=== PATIENT | male | born 1985 ===

== ENCOUNTER 2018-03-15 23:35 | Emergency (ER) | payer OTHER ==
[2018-03-16 00:31] VITALS: BMI 36.6
[2018-03-16 02:16] LABS: BASO % 0.5 % (0.0-2.0); EOS # 0.2 K/uL (0.0-0.7); EOS % 3.1 % (0.0-4.0); HEMOGLOBIN 16.6 g/dL (12.0-18.0); LYMPH # 2.4 K/uL (1.0-4.3); LYMPH % 32.9 % (20.0-40.0); MEAN CELL VOLUME 86.8 fl (80.0-94.0); MEAN CORPUSCULAR HEMOGLOBIN 29.6 pg (27.0-31.0); MEAN CORPUSCULAR HGB CONC 34.1 g/dL (33.0-37.0); MEAN PLATELET VOLUME 9.1 fl (7.2-11.7); MONO # 0.6 K/uL (0.0-0.8); MONO % 7.6 % (0.0-10.0); NEUT # 4.1 K/uL (1.8-7.0); NEUT % 55.9 % (50.0-75.0); RBC 5.59 Mil/uL (4.40-5.90); WHITE BLOOD COUNT 7.3 K/uL (4.8-10.8)
[2018-03-16 02:18] LABS: URINE BILIRUBIN NEGATIVE (NEGATIVE); URINE BLOOD NEGATIVE (NEGATIVE); URINE CLARITY CLEAR (Clear); URINE COLOR STRAW (YELLOW); URINE GLUCOSE (UA) NEG (NEGATIVE); URINE LEUKOCYTE ESTERASE NEG Leu/uL (Negative); URINE PROTEIN NEGATIVE (NEGATIVE); URINE UROBILINOGEN 0.2-1.0 mg/dL (0.2-1.0)
[2018-03-16 02:27] LABS: ALB/GLOB RATIO 1.5 (1.0-2.1); ALBUMIN 4.4 g/dL (3.5-5.0); ALT/SGPT 73 U/L (21-72); AST/SGOT 44 U/L (17-59); BLOOD UREA NITROGEN 16 mg/dl (9-20); CALCIUM 9.8 mg/dL (8.4-10.2); GFR NON-AFRICAN AMERICAN > 60; LIPASE 104 U/L (23-300)
--- NOTE | 2018-03-16 02:51 | ED PDOC ---
HPI: Abdomen Time Seen by Provider: 03/16/18 01:09 Chief Complaint (Nursing): Abdominal Pain Chief Complaint (Provider): Abdominal Pain History Per: Patient History/Exam Limitations: no limitations Onset/Duration Of Symptoms: Days (x3) Pain Scale Rating Of: 7 Location Of Pain/Discomfort: LLQ Quality Of Discomfort: "Pain" Associated Symptoms: Nausea, Diarrhea, Loss Of Appetite. denies: Vomiting Additional History Per: Patient Additional Complaint(s): 32 y/o male with a PMHX of hypertension presents to the ED with LLQ pain, onset 3 days ago associated with nausea and diarrhea. Patient has been experiencing a loss of appetite. Otherwise, patient denies vomiting. PMD: none Past Medical History Reviewed: Historical Data, Nursing Documentation, Vital Signs Vital Signs: Last Vital Signs Temp 98.6 F 03/16/18 00:31 Pulse 73 03/16/18 00:31 Resp 18 03/16/18 00:31 BP 135/74 03/16/18 00:31 Pulse Ox 99 03/16/18 00:31 DELANO Report Viewed: Yes - Medical History PMH: Diverticulitis, HTN - Surgical History Surgical History: No Surg Hx - Family History Family History: States: Unknown Family Hx - Social History Current smoker - smoking cessation education provided: No Ex-Smoker (has not smoked in the last 12 months): No Alcohol: None Drugs: Denies - Home Medications Home Medications: Ambulatory Orders Medication Instructions Recorded Dicyclomine [Bentyl] 20 mg PO Q12 PRN #20 tab 03/16/18 - Allergies Allergies/Adverse Reactions: Allergies Allergy/AdvReac Type Severity Reaction Status Date / Time aspirin Allergy RASH Verified 03/16/18 00:31 Review of Systems ROS Statement: Except As Marked, All Systems Reviewed And Found Negative Gastrointestinal: Positive for: Nausea, Diarrhea (non bloody). Negative for: Vomiting Physical Exam - Reviewed Nursing Documentation Reviewed: Yes Vital Signs Reviewed: Yes - Physical Exam Appears: Positive for: Well, No Acute Distress Head Exam: Positive for: ATRAUMATIC, NORMAL INSPECTION, NORMOCEPHALIC Skin: Positive for: Normal Color, Warm, Dry Eye Exam: Positive for: Normal appearance, EOMI, PERRL ENT: Positive for: Normal ENT Inspection Neck: Positive for: Normal Cardiovascular/Chest: Positive for: Regular Rate, Rhythm. Negative for: Murmur Respiratory: Positive for: Normal Breath Sounds. Negative for: Wheezing Gastrointestinal/Abdominal: Positive for: Tenderness (to the left lower quadrant) Back: Positive for: Normal Inspection Extremity: Positive for: Normal ROM (x4) Neurologic/Psych: Positive for: Alert, Oriented (x3) - Laboratory Results Result Diagrams: 03/16/18 01:55 03/16/18 01:55 Lab Results: Total Bilirubin 0.3 mg/dl (0.2-1.3) 03/16/18 01:55 AST 44 U/L (17-59) 03/16/18 01:55 ALT 73 U/L (21-72) H 03/16/18 01:55 Alkaline Phosphatase 78 U/L (38-126) 03/16/18 01:55 Total Protein 7.4 G/DL (6.3-8.2) 03/16/18 01:55 Albumin 4.4 g/dL (3.5-5.0) 03/16/18 01:55 Globulin 3.0 gm/dL (2.2-3.9) 03/16/18 01:55 Albumin/Globulin Ratio 1.5 (1.0-2.1) 03/16/18 01:55 Lipase 104 U/L (23-300) 03/16/18 01:55 Urine Color Straw (YELLOW) 03/16/18 01:55 Urine Clarity Clear (Clear) 03/16/18 01:55 Urine pH 6.0 (5.0-8.0) 03/16/18 01:55 Ur Specific Elbert 1.009 (1.003-1.030) 03/16/18 01:55 Urine Protein Negative mg/dL (NEGATIVE) 03/16/18 01:55 Urine Glucose (UA) Neg mg/dL (NEGATIVE) 03/16/18 01:55 Urine Ketones Negative mg/dL (NEGATIVE) 03/16/18 01:55 Urine Blood Negative (NEGATIVE) 03/16/18 01:55 Urine Nitrate Negative (NEGATIVE) 03/16/18 01:55 Urine Bilirubin Negative (NEGATIVE) 03/16/18 01:55 Urine Urobilinogen 0.2-1.0 mg/dL (0.2-1.0) 03/16/18 01:55 Ur Leukocyte Esterase Neg Nicholas/uL (Negative) 03/16/18 01:55 Urine RBC (Auto) 1 /hpf (0-3) 03/16/18 01:55 Urine Microscopic WBC < 1 /hpf (0-5) 03/16/18 01:55 - ECG O2 Sat by Pulse Oximetry: 99 (RA) Pulse Ox Interpretation: Normal Medical Decision Making Medical Decision Making: Time: 2:30 Initial Impression: 32 y/o male with abdominal pain. labs and CT ordered. Initial Plan: Time: 1:39 -Abd & Pelvis IV Contrast -CMP Stat -Lipase Stat -ED Urine Dipstick POC -CBC w differential -IV Insertion -Urinalysis - Patient declined pain medication at this time. Time: 1:27 CT ABD/ Pelvis w Contrast CLINICAL HISTORY: Abdominal pain. TECHNIQUE: Multiple axial and coronal CT images were obtained through the abdomen and pelvis after administration of intravenous contrast material. COMMENTS: The liver is of uniform attenuation without mass or defect. There is no intra or extrahepatic biliary ductal dilatation. The spleen is normal. The gallbladder is within normal limits. The pancreas is of normal contour and attenuation characteristics. There is no evidence of adrenal mass. Both kidneys demonstrate prompt and equal nephrograms. The kidneys are normal in size, shape and configuration. There is no evidence of renal or ureteral mass. No renal or ureteral calculi are identified. There is no hydroureter or hydronephrosis. No evidence for appendicitis. There is no bowel wall thickening. No evidence for small or large bowel obstruction. There is no evidence of abdominal ascites or lymphadenopathy. Uncomplicated colonic diverticulosis with mild amount of fecal residue in the large bowel. There is no evidence of intrinsic or extrinsic bladder mass. There is no pelvic ascites or lymphadenopathy. Diffuse thickening of the bladder. Images of the lung bases show no evidence of pleural or parenchymal mass. There are no pleural effusions. The bony structures are free of lytic or blastic lesions. IMPRESSION: Mild thickening of the bladder. Under distention versus mild cystitis. Thank you for your kind referral of this patient. Electronically signed on Mar 16, 2018 3:46:35 AM EST by: Mckinley Medrano M.D., Certified by JAYLENE, MSDc, Neuroradiology Scribe Attestation: Documented by Cora Stout, acting as a scribe for Myronjarek Phillips Heavenprakash. Provider Scribe Attestation: All medical record entries made by the Scribe were at my direction and personally dictated by me. I have reviewed the chart and agree that the record accurately reflects my personal performance of the history, physical exam, medical decision making, and the department course for this patient. I have also personally directed, reviewed, and agree with the discharge instructions and disposition. Disposition - Clinical Impression Clinical Impression: Abdominal pain - Disposition Referrals: [facility] [Outside] Disposition Time: 04:00 Condition: STABLE Prescriptions: Dicyclomine [Bentyl] 20 mg PO Q12 PRN #20 tab PRN Reason: abdominal pain Instructions: Acute Abdomen (Belly Pain), Adult (DC) Forms: [facility] (Angolan) Print Language: [place]
[2018-03-16] MEDS ORDERED: Iohexol 300 100 ML IJ ONE (03:00)
[2018-03-16] MEDS ORDERED: Sodium Chloride 0.9% 50 ML IV ONE (03:00)
[2018-03-16 04:05] VITALS: BP 129/81; PULSE 76; RESP 16; TEMP 98.7
--- NOTE | 2018-03-16 13:15 | CT ---
Date of service: 03/16/2018 PROCEDURE: CT Abdomen and Pelvis with contrast HISTORY: LLQ pain COMPARISON: None. TECHNIQUE: Contrast dose: Radiation dose: Total exam DLP = 911.84 mGy-cm. This CT exam was performed using one or more of the following dose reduction techniques: Automated exposure control, adjustment of the mA and/or kV according to patient size, and/or use of iterative reconstruction technique. FINDINGS: LOWER THORAX: Unremarkable. LIVER: Fatty liver. No gross lesion or ductal dilatation. GALLBLADDER AND BILE DUCTS: Unremarkable. PANCREAS: Unremarkable. No gross lesion or ductal dilatation. SPLEEN: Unremarkable. ADRENALS: Unremarkable. No mass. KIDNEYS AND URETERS: Unremarkable. No hydronephrosis. No solid mass. VASCULATURE: Unremarkable. No aortic aneurysm. No aortic atherosclerotic calcification or mural plaque present. BOWEL: Unremarkable. No obstruction. No gross mural thickening. APPENDIX: Normal appendix. PERITONEUM: Unremarkable. No free fluid. No free air. LYMPH NODES: Unremarkable. No enlarged lymph nodes. BLADDER: Unremarkable. REPRODUCTIVE: Unremarkable. BONES: No acute fracture. OTHER FINDINGS: None. IMPRESSION: Fatty liver.
[2018-03-17 05:13] VITALS: O2SAT 99
== END 2018-03-16 04:05 | disposition home or self-care (01) ==
LOC: H.ER 23:35
DX: R10.32 Left lower quadrant pain (principal)
CPT/HCPCS: 74177; 80053; 81003; 83690; 85025; 99283; Q9967

== ENCOUNTER 2018-05-26 17:09 | Emergency (ER) | payer OTHER ==
[2018-05-26 17:09] VITALS: BMI 36.6
[2018-05-26] MEDS ORDERED: Sodium Chloride 0.9% 1,000 ML IV STA (17:54)
--- NOTE | 2018-05-26 17:57 | ED PDOC ---
HPI: Chest Pain Time Seen by Provider: 05/26/18 17:55 Chief Complaint (Nursing): Chest Pain Chief Complaint (Provider): palpitations History Per: Patient (33 y/o male here with palpitations intermittent x 2 days four minutes in duration associated with chest pressure. Patient states he has been seen by cardiology in [place] for these symptoms and has been on atenolol and no rvasc. Notes that he was adviced to stop atenolol under monitoring was done on 04/27. Says he subsequently restarted medications but is concerned with episodes of palpitations today. Has also had CTA of chest but unsure of results. f/u appt with cardiolgy next week 06/01/2018.) Past Medical History Reviewed: Historical Data, Nursing Documentation, Vital Signs Vital Signs: Last Vital Signs Temp 97.7 F 05/26/18 17:18 Pulse 80 05/26/18 17:18 Resp 18 05/26/18 17:18 BP 159/92 H 05/26/18 17:18 Pulse Ox 100 05/26/18 17:18 - Medical History PMH: Diverticulitis, HTN - Family History Family History: States: Unknown Family Hx - Home Medications Home Medications: Ambulatory Orders Medication Instructions Recorded Dicyclomine [Bentyl] 20 mg PO Q12 PRN #20 tab 03/16/18 - Allergies Allergies/Adverse Reactions: Allergies Allergy/AdvReac Type Severity Reaction Status Date / Time aspirin Allergy RASH Verified 05/26/18 17:19 Review of Systems ROS Statement: Except As Marked, All Systems Reviewed And Found Negative Cardiovascular: Positive for: Palpitations Physical Exam - Reviewed Nursing Documentation Reviewed: Yes Vital Signs Reviewed: Yes - Physical Exam Appears: Positive for: Well, Non-toxic, No Acute Distress Head Exam: Positive for: ATRAUMATIC, NORMAL INSPECTION, NORMOCEPHALIC Skin: Positive for: Normal Color, Warm, DRY Eye Exam: Positive for: EOMI, Normal appearance, PERRL ENT: Positive for: Normal ENT Inspection Neck: Positive for: Normal, Painless ROM Cardiovascular/Chest: Positive for: Regular Rate, Rhythm Respiratory: Positive for: CNT, Normal Breath Sounds Gastrointestinal/Abdominal: Positive for: Normal Exam, Soft Back: Positive for: Normal Inspection Extremity: Positive for: Normal ROM Neurological/Psych: Positive for: Awake, Alert, Normal Tone - Laboratory Results Result Diagrams: 05/26/18 18:00 03/21/19 18:00 - ECG O2 Sat by Pulse Oximetry: 100 - Progress ED Course And Treament: cxr: nad ct of head : nad Disposition - Clinical Impression Clinical Impression: Chest pain - Patient ED Disposition Is Patient to be Admitted: No - Disposition Disposition: Routine/Home Disposition Time: 19:46 Condition: FAIR Instructions: Chest Pain, Palpitations Forms: [facility] ED School/Work Excuse Print Language: DIVEHI
[2018-05-26 18:34] LABS: BASO % 0.5 % (0.0-2.0); EOS # 0.3 K/uL (0.0-0.7); EOS % 3.3 % (0.0-4.0); HEMOGLOBIN 17.1 g/dL (12.0-18.0); LYMPH # 1.6 K/uL (1.0-4.3); MEAN CELL VOLUME 85.9 fl (80.0-94.0); MEAN CORPUSCULAR HEMOGLOBIN 29.1 pg (27.0-31.0); MEAN CORPUSCULAR HGB CONC 33.9 g/dL (33.0-37.0); MEAN PLATELET VOLUME 8.7 fl (7.2-11.7); MONO # 0.4 K/uL (0.0-0.8); NEUT # 5.8 K/uL (1.8-7.0); NEUT % 71.2 % (50.0-75.0); NRBC % 0.1 % (0.0-0.0); RBC 5.85 Mil/uL (4.40-5.90); RED CELL DISTRIBUTION WIDTH 13.1 % (11.5-14.5); WHITE BLOOD COUNT 8.1 K/uL (4.8-10.8)
[2018-05-26 18:57] LABS: ALB/GLOB RATIO 1.4 (1.0-2.1); ALBUMIN 4.5 g/dL (3.5-5.0); ALT/SGPT 89 U/L (21-72); AST/SGOT 42 U/L (17-59); BLOOD UREA NITROGEN 12 mg/dl (9-20); GFR NON-AFRICAN AMERICAN > 60
--- NOTE | 2018-05-26 18:59 | CT ---
Date of service: 05/26/2018 PROCEDURE: CT HEAD WITHOUT CONTRAST. HISTORY: tinnitus COMPARISON: None available. TECHNIQUE: Axial computed tomography images were obtained through the head/brain without intravenous contrast. Supplemental Coronal and Sagittal projections created and reviewed. Radiation dose: Total exam DLP = 910.21 mGy-cm. This CT exam was performed using one or more of the following dose reduction techniques: Automated exposure control, adjustment of the mA and/or kV according to patient size, and/or use of iterative reconstruction technique. FINDINGS: HEMORRHAGE: No intracranial hemorrhage. BRAIN: No mass effect or edema. No atrophy or chronic microvascular ischemic changes. VENTRICLES: Unremarkable. No hydrocephalus. CALVARIUM: Unremarkable. PARANASAL SINUSES: Unremarkable as visualized. No significant inflammatory changes. MASTOID AIR CELLS: Unremarkable as visualized. No inflammatory changes. OTHER FINDINGS: None. IMPRESSION: Normal CT of the Head.
[2018-05-26 20:55] VITALS: BP 131/74; PULSE 85; RESP 17; TEMP 98.4
--- NOTE | 2018-05-27 09:21 | RAD ---
Date of service: 05/26/2018 HISTORY: palpitations COMPARISON: No prior. FINDINGS: LUNGS: Poor inspiration with low lung volumes, crowded bronchovascular markings and minor bibasilar PLEURA: No significant pleural effusion identified, no pneumothorax apparent. CARDIOVASCULAR: No aortic atherosclerotic calcification present. Normal cardiac size. No pulmonary vascular congestion. OSSEOUS STRUCTURES: No significant abnormalities. VISUALIZED UPPER ABDOMEN: Normal. OTHER FINDINGS: None. IMPRESSION: Poor inspiration with low lung volumes, crowded bronchovascular markings and minor bibasilar atelectasis
--- NOTE | 2018-05-27 22:33 | CARD ---
APPROVED REPORT Date of service: 05/26/2018 EKG Measurement Heart [id number] <Conclusion> Normal sinus rhythm Normal ECG
[2018-05-29 00:06] VITALS: O2SAT 100
== END 2018-05-26 20:15 | disposition home or self-care (01) ==
LOC: H.ER 17:09
DX: R07.89 Other chest pain (principal); I10 Essential (primary) hypertension
CPT/HCPCS: 70450; 71045; 80053; 83735; 84443; 84484; 85025; 85378; 93005; 99284; J7030

== ENCOUNTER 2018-07-13 12:33 | Emergency (ER) | payer OTHER ==
[2018-07-13 12:41] VITALS: TEMP 98.1; BMI 36.1
[2018-07-13] MEDS ORDERED: Sodium Chloride 0.9% 1,000 ML IV STA (13:23)
--- NOTE | 2018-07-13 13:30 | ED PDOC ---
Syncope/Near Syncope/Dizziness Time Seen by Provider: 07/13/18 13:12 Chief Complaint (Nursing): Dizziness/Lightheaded Chief Complaint (Provider): elevated BP with complaint of chest pain History Per: Patient History/Exam Limitations: no limitations Onset/Duration Of Symptoms: Hrs Current Symptoms Are (Timing): Gone Now Activity At Onset Of Symptoms: Sitting (sitting watching TV) Associated Symptoms Preceding Syncopal Episode: Lightheadedness (dizziness). denies: No Predromal Symptoms (Sudden Onset) Seizure Or Post-ictal Symptoms: None Possible Causative Factor(s): denies: Vertigo, Lightheaded W/Standing, Lightheaded W/Change In Head Position Fall Associated With With Symptoms: No Pain Scale Rating Of: 8 Additional Complaint(s): 33 yo male with history of HTN presents to ED with complaint of Headache, dizziness and chest pain. Patient reports at 11 am he was sitting watching TV and began feeling dizziness and bilateral frontal headache with bilateral tinnitus (of which he states he gets when his BP is elevated). At that time he took his BP and it was 150/80 HR 80. He states that he then began to have non- radiating left sided chest pain, palpitations with dypsnea. States the chest pain and dypsnea has now resolved. Of note, reports his receptionist telephone operator changed his HTN medication from Amlodipine and atenolol to Cardizem 240mg daily. He notes that after the change of the medication, Wednesday (3 days ago), he began having daily headaches. Denies fevers, chills, nausea, vomiting, changes in vision, abdominal pain, diarrhea, loss of consciousness, trauma to the head. PMD: none - reports he only sees his receptionist telephone operator- Dr. Hardik France from [facility] Medications: Cardizem 240mg - 1 tablet po daily Social: Denies smoking history, last alcohol use was 2 months ago, and denies illicit drug use. Family history: DM and HTN; Grandmother in her 70's from [place] Surgical history: bilateral eye surgery 2 years ago Medical history: HTN - Symptoms Of CVA Recent Aspirin Use: No Current Coumadin Use?: No Recent Head Trauma: No - Risk Factors PE Risk Factors: Neg: Extremity Immobilization/Fx, Decreased Mobilty /Activity, Recent Major Surgery, Recent Hospitalization, Active Cancer, Previous DVT, Previous PE TAD Risk Factors: Pos: Hypertension Past Medical History Reviewed: Historical Data, Nursing Documentation, Vital Signs Vital Signs: Last Vital Signs Temp 98.1 F 07/13/18 12:38 Pulse 73 07/13/18 12:38 Resp 16 07/13/18 12:38 BP 110/72 07/13/18 12:38 Pulse Ox 99 07/13/18 12:38 Primary Care Provider: Doctor,Conversion - Medical History PMH: Diverticulitis, HTN - Surgical History Other surgeries: Eye surgery right and left 2 years ago - Family History Family History: States: Diabetes, Hypertension - Living Arrangements Living Arrangements: With Family - Social History Current smoker - smoking cessation education provided: No Ex-Smoker (has not smoked in the last 12 months): No Alcohol: None Drugs: Denies - Home Medications Home Medications: Ambulatory Orders Medication Instructions Recorded Dicyclomine [Bentyl] 20 mg PO Q12 PRN #20 tab 03/16/18 - Allergies Allergies/Adverse Reactions: Allergies Allergy/AdvReac Type Severity Reaction Status Date / Time aspirin Allergy RASH Verified 07/13/18 12:44 Review of Systems Constitutional: Negative for: Fever, Chills ENT: Positive for: Other (bilateral ear tinnitus). Negative for: Ear Pain, Ear Discharge, Nose Pain, Nose Congestion Cardiovascular: Positive for: Chest Pain, Palpitations Respiratory: Positive for: Shortness of Breath. Negative for: Cough, Hemoptysis, SOB with Exertion, Pleuritic Pain, Sputum, Wheezing Gastrointestinal: Negative for: Nausea, Vomiting, Abdominal Pain, Diarrhea, Constipation Genitourinary Male: Negative for: Dysuria, Frequency Skin: Negative for: Rash Neurological: Positive for: Headache, Dizziness (patient describes dizziness as him swaying) Physical Exam - Reviewed Vital Signs Reviewed: Yes - Physical Exam Appears: Positive for: No Acute Distress Head Exam: Positive for: NORMAL INSPECTION Skin: Positive for: Normal Color, Warm, Dry Eye Exam: Positive for: Normal appearance, PERRL ENT: Positive for: Normal ENT Inspection, TM Is/Are (clear ). Negative for: Nasal Congestion, Pharyngeal Erythema, Tonsillar Exudate Cardiovascular/Chest: Positive for: Regular Rate, Rhythm (S1 and S2 appreciated on exam) Respiratory: Positive for: Normal Breath Sounds. Negative for: Decreased Breath Sounds, Accessory Muscle Use, Crackles, Rales, Rhonchi, Stridor, Wheezing, Respiratory Distress Gastrointestinal/Abdominal: Positive for: Normal Exam, Bowel Sounds, Soft. Negative for: Tenderness, Distended, Guarding, Rebound Extremity: Negative for: Tenderness, Pedal Edema, Calf Tenderness Neurological/Psych: Positive for: Awake, Alert - Laboratory Results Result Diagrams: 07/13/18 14:21 07/13/18 14:21 - ECG O2 Sat by Pulse Oximetry: 99 - Progress ED Course And Treament: 33 yo male with history of HTN presented to ED with complaints of Headache, chest pain and dizziness secondary to elevated BP readings at home. Differential: ACS vs. Hypertensive urgency Plan: -- EKG -- Troponin -- BMP -- CBC -- BNP -- Drug screen -- Venous blood gas -- Pt/PTT -- Urinalysis -- Chest Xray-- no active pulmonary disease -- 1L bolus NS Re-examined 1457 patient reports feeling well. Denies any complaints of chest pain or dypsnea. Pending Troponin and Pro BNP Dr. Hardik France's office was contacted @ 1001: fax of EKG was sent with cover letter Re-examined 1614 Patient reports headache, repeat BP is 160/94; HR: 84; Saturation 100% room air - At this time will give tylenol, reglan and cardizem 60mg. Disposition - Clinical Impression Clinical Impression: Dizziness, Chest pain - Patient ED Disposition Is Patient to be Admitted: No Comment: Primary care physician is Dr. Dye (Air Analysis Engineering Technician) Doctor Will See Patient In The: Office - Disposition Disposition: Routine/Home Disposition Time: 16:02 Condition: IMPROVED Additional Instructions: Follow up with Dr. Hardik France tomorrow for further workup. Instructions: Chest Pain (DC) Forms: [employer] (Kazakh) Print Language: BARBADIAN NATASHA Risk Score for UA/NSTEMI - NATASHA Risk Score Age > 64: NO 3 or more CAD Risk Factors: NO Known CAD (Stenosis greater than 50%): NO Aspirin use in past 7 days: NO Severe Angina: NO EKG ST changes greater than 0.5mm: NO Positive Cardiac Marker: NO NATASHA Score: 0 Risk %: 5%
[2018-07-13 14:24] LABS: VENOUS BLOOD GAS BASE EXCESS 2.5 mmol/L (0.0-2.0); VENOUS BLOOD GAS PCO2 52 mmHg (40-60); VENOUS BLOOD GAS PO2 25 mm/Hg (30-55); VENOUS BLOOD PH 7.36 (7.32-7.43)
[2018-07-13 14:24] LABS: BASO # 0.1 K/uL (0.0-0.2); BASO % 1.2 % (0.0-2.0); EOS # 0.1 K/uL (0.0-0.7); EOS % 1.3 % (0.0-4.0); HEMOGLOBIN 16.9 g/dL (12.0-18.0); LYMPH # 1.5 K/uL (1.0-4.3); LYMPH % 23.4 % (20.0-40.0); MEAN CORPUSCULAR HGB CONC 33.7 g/dL (33.0-37.0); MEAN PLATELET VOLUME 8.7 fl (7.2-11.7); MONO # 0.4 K/uL (0.0-0.8); MONO % 5.7 % (0.0-10.0); NEUT # 4.3 K/uL (1.8-7.0); NEUT % 68.4 % (50.0-75.0); NRBC % 0.1 % (0.0-0.0); RBC 5.82 Mil/uL (4.40-5.90); RED CELL DISTRIBUTION WIDTH 13.4 % (11.5-14.5); WHITE BLOOD COUNT 6.3 K/uL (4.8-10.8)
[2018-07-13 14:32] LABS: PROTHROMBIN TIME 11.7 Seconds (9.8-13.1)
[2018-07-13 14:35] LABS: PARTIAL THROMBOPLASTIN TIME 34.5 Seconds (25.6-37.1)
--- NOTE | 2018-07-13 14:41 | RAD ---
Date of service: 07/13/2018 HISTORY: possible admission COMPARISON: 05/26/2018 FINDINGS: LUNGS: No active pulmonary disease. PLEURA: No significant pleural effusion identified, no pneumothorax apparent. CARDIOVASCULAR: No atherosclerotic calcification present Normal. OSSEOUS STRUCTURES: No significant abnormalities. VISUALIZED UPPER ABDOMEN: Normal. OTHER FINDINGS: None. IMPRESSION: No active disease. No significant interval change compared to the prior examination(s).
[2018-07-13 14:53] LABS: BLOOD UREA NITROGEN 14 mg/dl (9-20); CALCIUM 9.7 mg/dL (8.4-10.2); GFR NON-AFRICAN AMERICAN > 60
--- NOTE | 2018-07-13 16:00 | CARD ---
APPROVED REPORT Date of service: 07/13/2018 EKG Measurement Heart [id number] <Conclusion> Normal sinus rhythm Normal ECG
[2018-07-13 16:09] LABS: URINE BILIRUBIN NEGATIVE (NEGATIVE); URINE BLOOD NEGATIVE (NEGATIVE); URINE CLARITY CLEAR (Clear); URINE COLOR COLORLESS (YELLOW); URINE GLUCOSE (UA) NEG (NEGATIVE); URINE LEUKOCYTE ESTERASE NEG Leu/uL (Negative); URINE PROTEIN NEGATIVE (NEGATIVE); URINE UROBILINOGEN 0.2-1.0 mg/dL (0.2-1.0)
[2018-07-13 16:21] LABS: BARBITURATES, UR NEGATIVE (NEGATIVE); BENZODIAZEPINES, UR NEGATIVE (NEGATIVE); OPIATES, UR NEGATIVE (NEGATIVE); PHENCYCLIDINE, UR NEGATIVE (NEGATIVE)
[2018-07-13 16:24] VITALS: BP 153/87; RESP 17
[2018-07-13 16:29] VITALS: PULSE 91
[2018-07-15 09:55] VITALS: O2SAT 99
== END 2018-07-13 17:25 | disposition home or self-care (01) ==
LOC: H.ER 12:33
DX: R42 Dizziness and giddiness (principal); R07.9 Chest pain, unspecified; I10 Essential (primary) hypertension; Z82.49 Family history of ischemic heart disease and other diseases of the circulatory system; Z83.3 Family history of diabetes mellitus; Z87.891 Personal history of nicotine dependence
CPT/HCPCS: 71045; 80048; 80324; 80345; 80346; 80349; 80353; 80358; 80361; 81003; 82803; 83880; 83992; 84484; 85025; 85610; 85730; 93005; 96374; 99285; J2765; J7030